=== PATIENT | male | born 1955 | race Hispanic/Latino ===

== ENCOUNTER 2018-04-26 23:29 | Emergency (ER) | payer SELFPAY ==
[2018-04-26 23:29] VITALS: BMI 33.4
[2018-04-27] MEDS ORDERED: Tetracaine 0.5% Ophth 2 ML BOTTLE OD STA (00:46)
[2018-04-27] MEDS ORDERED: TDAP Vaccine 0.5 mL Syr IM ONE (01:04)
--- NOTE | 2018-04-27 01:25 | ED PDOC ---
Arrival/HPI - General Chief Complaint: Eye Problem Time Seen by Provider: 04/27/18 00:07 Historian: Patient - History of Present Illness Narrative History of Present Illness (Text): 04/27/18 01:54 62-year-old male presents today with foreign body sensation in the right eye. Patient states he was sanding paint off of a car at around 3 PM he felt foreign body go into the eye. Patient states his eye wasn't bothering at that time and he continued working. Patient states tonight when he got out of the shower he had a severe burning pain in the right eye with photophobia. Patient states he' s been rubbing his eye a lot. He denies headache dizziness or weakness. No medications have been taken for pain at home. Patient states this has happened to him once in the past. Patient is unsure of his last tetanus shot. No other complaints Time/Duration: Other (3pm) Symptom Onset: Gradual Symptom Course: Worsening Quality: Burning Severity Level: 9 Past Medical History - Provider Review Nursing Documentation Reviewed: Yes - Travel History Have you recently traveled outside [place] w/in the past 3 mons?: No - Infectious Disease Hx of Infectious Diseases: None - Tetanus Immunization Tetanus Immunization: Unknown - Cardiac Hx Hypertension: Yes - Pulmonary Hx Respiratory Disorders: No - Neurological Hx Neurological Disorder: No - HEENT Hx HEENT Disorder: No - Renal Hx Renal Disorder: No - Endocrine/Metabolic Hx Endocrine Disorders: No - Hematological/Oncological Hx Blood Disorders: No - Integumentary Hx Dermatological Disorder: No - Musculoskeletal/Rheumatological Hx Musculoskeletal Disorders: No - Psychiatric Hx Depression: No Hx Emotional Abuse: No Hx Physical Abuse: No Hx Substance Use: No - Past Surgical History Past Surgical History: No Previous - Anesthesia Hx Anesthesia: No - Suicidal Assessment Feels Threatened In Home Enviroment: No Family/Social History - Physician Review Nursing Documentation Reviewed: Yes Family/Social History: Unknown Family HX Smoking Status: Never Smoked Hx Alcohol Use: No Hx Substance Use: No Hx Substance Use Treatment: No Allergies/Home Meds Allergies/Adverse Reactions: Allergies No Known Allergies Allergy (Verified 04/26/18 23:40) Home Medications: Home Meds Medication Instructions Recorded Confirmed Atenolol [Atenolol] 50 mg PO DAILY 04/26/18 04/26/18 Review of Systems - Review of Systems Constitutional: absent: Fatigue, Fevers Eyes: Photophobia, Eye Pain ENT: absent: Sore Throat, Sinus Congestion Respiratory: absent: SOB, Cough Cardiovascular: absent: Chest Pain, Palpitations Gastrointestinal: absent: Abdominal Pain, Nausea, Vomiting Genitourinary Male: absent: Dysuria Musculoskeletal: absent: Arthralgias, Back Pain, Neck Pain Skin: absent: Rash, Pruritis Neurological: absent: Headache, Dizziness Psychiatric: absent: Anxiety, Depression Physical Exam Vital Signs Reviewed: Yes Vital Signs Temp Pulse Resp BP Pulse Ox 04/27/18 02:12 98.0 F 78 17 148/71 98 04/26/18 23:36 98.6 F 74 18 147/75 96 Temperature: Afebrile Blood Pressure: Normal Pulse: Regular Respiratory Rate: Normal Appearance: Positive for: Well-Appearing, Non-Toxic, Comfortable Pain Distress: None Mental Status: Positive for: Alert and Oriented X 3 - Systems Exam Head: Present: Atraumatic Pupils: Present: PERRL Extroacular Muscles: Present: EOMI. No: Entrapment Conjunctiva: Present: Injected (right conjunctival injection. ), Other (+ 2 small 1mm areas of dye uptake on the cornea; no hyphema, no subconjunctival hemorrhage.) Mouth: Present: Moist Mucous Membranes Pharnyx: Present: Normal Neck: Present: Normal Range of Motion Respiratory/Chest: Present: Clear to Auscultation Cardiovascular: Present: Regular Rate and Rhythm Neurological: Present: GCS=15 Skin: Present: Warm, Dry, Normal Color. No: Rashes Psychiatric: Present: Alert, Oriented x 3 Medical Decision Making ED Course and Treatment: 04/27/18 01:58 Patient is nontoxic well appearing in no distress Visual acuity within normal limits Tetanus updated Toradol given for pain Right eye: Positive Conjunctival injection noted, PERRLA, extraocular muscles intact, +2 small 1 mm in size areas of dye uptake concerning for possible small foreign body/corneal abrasion. 2 calls were placed to the custodial laborer; All results discussed this with the patient. Patient was advised to follow-up with the custodial laborer tomorrow. Advised patient of possible foreign body in the eye/possible corneal abrasion. Stressed importance of immediate return is symptoms worsen persist or if new concerning symptoms Patient verbalizes understanding of discharge instructions and need for immediate followup. all aspects of this case were discussed the attending of record. Impression: Foreign body, eye Motrin every 6 hours as needed for pain Tobrex: 2 drops in the affected eye 4 times daily Followup with the eye doctor tomorrow Return immediately if symptoms worsen persist or if new symptoms develop; blurry vision, worsening eye pain, worsening redness or any other concerning symptoms develop. Follow up with the primary care physician within the next 2 days Reassessment Condition: Re-examined, Improved - Medication Orders Current Medication Orders: Discontinued Medications Ketorolac Tromethamine (Toradol) 60 mg IM STAT STA Stop: 04/27/18 01:05 Last Admin: 04/27/18 01:19 Dose: 60 mg MAR Pain Assessment Document 04/27/18 01:19 IT (Rec: 04/27/18 01:19 IT [facility] [place]-[id number]) Pain Reassessment Is this a pain reassessment? No Sleep Is patient sleeping during reassessment? No Presence of Pain Presence of Pain Yes Pain Scale Used Pain Scale Used Numeric Location Left, Right or Bilateral Right Pain Location Body Site Eye IM Administration Charges Document 04/27/18 01:19 IT (Rec: 04/27/18 01:19 IT [facility] [place]-[id number]) Injection Site MAR Injection Site Left Deltoid Charges for Administration # of IM Administrations 1 Tetanus/Reduced Diphtheria/Acell Pertussis (Boostrix Vaccine Inj) 0.5 ml IM .ONCE ONE Stop: 04/27/18 01:05 Last Admin: 04/27/18 01:18 Dose: 0.5 ml MAR Immunization Data Document 04/27/18 01:18 IT (Rec: 04/27/18 01:18 IT [facility] [place]-[id number]) Immunization Data Vaccine Information Sheet Given Yes Tetracaine HCl (Tetracaine 0.5% Ophth Soln) 1 drop OD STAT STA Stop: 04/27/18 00:47 Last Admin: 04/27/18 00:53 Dose: 1 drop Comments: administered by Simon MCNEAL Tobramycin Sulfate (Tobrex 0.3% Ophth Soln) 2 drop OD STAT STA Stop: 04/27/18 01:56 Last Admin: 04/27/18 02:10 Dose: 2 drop Disposition/Present on Arrival - Present on Arrival Any Indicators Present on Arrival: No History of DVT/PE: No History of Uncontrolled Diabetes: No Urinary Catheter: No History of Decub. Ulcer: No History Surgical Site Infection Following: None - Disposition Have Diagnosis and Disposition been Completed?: Yes Diagnosis: Foreign body, eye Disposition: HOME/ ROUTINE Disposition Time: :25 Patient Plan: Discharge Condition: GOOD Discharge Instructions (ExitCare): Foreign Body in Eye (DC) Additional Instructions: Motrin every 6 hours as needed for pain Tobrex: 2 drops in the affected eye 4 times daily Followup with the eye doctor tomorrow Return immediately if symptoms worsen persist or if new symptoms develop; blurry vision, worsening eye pain, worsening redness or any other concerning symptoms develop. Follow up with the primary care physician within the next 2 days Prescriptions: Ibuprofen [Motrin] 600 mg PO Q6H PRN #20 tab PRN Reason: pain/fever reduction Tobramycin 0.3% [Tobramycin 5 Ml] 2 drop OD QID #1 bottle Referrals: Rahul Borges MD [Staff Provider] - Follow up with primary Trent Cota MD [Staff Provider] - Follow up with primary Matt Deng [Staff Provider] - Follow up with primary Forms: [employer] ([place]ian), WORK NOTE
[2018-04-27] MEDS ORDERED: Tobramycin 0.3% OPHT SOLN OD STA (01:55)
[2018-04-27 02:12] VITALS: BP 148/71; PULSE 78; RESP 17; TEMP 98; O2SAT 98
== END 2018-04-27 02:12 | disposition home or self-care (01) ==
LOC: ED 23:29
DX: T15.91XA Foreign body on external eye, part unspecified, right eye, initial encounter (principal); X58.XXXA Exposure to other specified factors, initial encounter; Z23 Encounter for immunization; I10 Essential (primary) hypertension
CPT/HCPCS: 90471; 90715; 96372; 99284; J1885